=== PATIENT | male | born 1960 | race Caucasian/White ===

== ENCOUNTER 2019-01-27 06:53 | Day surgery (SDC) | payer OTHER ==
[2019-01-17 19:04] VITALS: BMI 32.8
[2019-01-27] MEDS ORDERED: ceFAZolin SODIUM 1 GM VIAL ONE ×2 (08:40→10:40)
[2019-01-27] MEDS ORDERED: SODIUM CHLORIDE 0.9% P/F 10 ML VIAL IJ ONE ×2 (08:40→10:40)
[2019-01-27] MEDS ORDERED: DEXMEDETOMIDINE HCL 200 MCG/2 ML IVPB ONE (10:05)
[2019-01-27] MEDS ORDERED: BUPIVACAINE HCL/PF 0.5% (5MG/ML) 10 ML VIAL ONE (10:07)
[2019-01-27] MEDS ORDERED: MIDAZOLAM HCL 2 MG/2 ML SINGLE DOSE VIAL ONE ×2 (10:11→10:41)
[2019-01-27] MEDS ORDERED: BUPIVACAINE HCL/EPINEPHRINE/PF 30 ML VIAL IJ ONE (10:17)
[2019-01-27] MEDS ORDERED: ePHEDrine SULFATE 50 MG/1 ML AMPULE ONE (10:54)
--- NOTE | 2019-01-27 11:30 | OP ---
Operative Note - Note: Operative Date: 01/27/19 Pre-Operative Diagnosis: Left knee LMT- bucket handle Operation: LKA, LMR Post-Operative Diagnosis: Same as Pre-op Surgeon: Bhavik Blackwood Anesthesia: General, Spinal Operative Report Dictated: Yes
--- NOTE | 2019-01-27 11:30 | DS ---
Physical Examination Vital Signs: Vital Signs Temperature 98.5 F 01/27/19 07:26 Pulse Rate 74 01/27/19 07:26 Respiratory Rate 18 01/27/19 07:26 Blood Pressure 132/88 01/27/19 07:26 O2 Sat by Pulse Oximetry (%) 98 01/27/19 07:26 Discharge Summary Reason For Visit: MEIAL MENISCAL TEAR RIGHT KNEE Condition: Good - Instructions Diet, Activity, Other Instructions: Post Operative Instructions: Knee Arthroscopy Dr Bhavik Blackwood 1. Pain following an arthroscopy is variable. Some patients will have more pain than others. You have been provided with a prescription for medication that contains a narcotic. You are not allowed to drive while on this medication. You should NOT take Tylenol (Acetaminophen) when taking the pain medication ( it will result in an overdose). Feel free to take medications such as Ibuprofen or Naprosyn in addition to the pain medicine if you do not have any problems with the NSAID class of medications. 2. You should are allowed to remove the bandages and shower in 24 hours unless directed otherwise. You are not allowed to bathe or go swimming until the sutures are removed. Put band-aids on the sutures after your shower and do not put any creams or lotions over the incisions. 3. You are allowed to put all your weight on the leg and bend your knee, unless directed otherwise. 4. Apply ice to the knee for 15 min every hour or so. You may continue this for as many days as you like. 5. Please call the office to schedule a visit to have your sutures removed. 6. If for any reason you believe you may have an infection or are concerned, please feel free to call me. I can be reached through our office number 24 hours a day. 7. Please call our office with any questions; we will review the surgical findings during your post operative visit. Disposition: HOME - Home Medications Comprehensive Discharge Medication List: Ambulatory Orders Amlodipine Besylate 10 mg PO DAILY 01/17/19 Aspirin [ASA -] 81 mg PO DAILY 01/17/19 Carvedilol [Coreg -] 25 mg PO DAILY 01/17/19 Dapagliflozin/Metformin HCl [Xigduo Xr 10 mg-1,000 mg Tab] 1 each PO DAILY 01/17 Dulaglutide [Trulicity] 1.5 mg SQ WEEKLY 01/17/19 Glimepiride 2 mg PO DAILY 01/17/19 Insulin Glargine,Hum.rec.anlog [Michelleaglantonia [place] U-100] 35 unit SQ DAILY Latanoprostene Bunod [Vyzulta] 1 drop OU DAILY 01/17/19 Lisinopril [Prinivil -] 40 mg PO DAILY 01/17/19 Oxycodone HCl 15 mg PO QID 01/17/19
[2019-01-27] MEDS ORDERED: oxyCODONE HCL 5 MG TABLET PO PRN (12:22)
[2019-01-27] MEDS ORDERED: ONDANSETRON 4 MG/2 ML VIAL IVPUSH PRN (12:22)
[2019-01-27] MEDS ORDERED: LACTATED RINGERS SOLUTION 1,000 ML IV SCH (12:30)
[2019-01-27 12:43] VITALS: TEMP 98
[2019-01-27] MEDS ORDERED: oxyCODONE HCL 5 MG TABLET ONE (13:22)
[2019-01-27 14:01] VITALS: BP 142/89; PULSE 59
--- NOTE | 2019-02-01 10:16 | PATH ---
Surgical Pathology Report Patient Name: ANAT JOHNSON [facility]. Rec. #: [id number] /Age/Gender: 1960 (Age: 58) / F Account: [id number] Location: [facility] Taken: 01/27/2019 Received: 01/27/2019 Reported: 02/01/2019 Physicians: Bhavik Blackwood M.D. Specimen(s) Received SHAVINGS RIGHT KNEE Clinical History Right medial meniscus tear knee Final Diagnosis RIGHT KNEE SHAVINGS: FRAGMENTS OF SYNOVIAL AND CARTILAGINOUS TISSUE WITH REACTIVE AND DEGENERATIVE CHANGE. Electronically Signed Selam Noland M.D. Gross Description Received in formalin labeled "shavings right knee," is a 2.2 x 1.5 x 0.3 cm aggregate of cordova-yellow soft tissue fragments. The formalin is filtered and the specimen is entirely submitted in one cassette. /01/30/201901/30/2019
== END 2019-01-27 14:12 | disposition home or self-care (01) ==
LOC: FASU 06:53 → EDSEX 07:30 → FASU 14:12
PROVIDERS: ATTEND Orthopaedic Surgery
PROC: 0SQC4ZZ Repair Right Knee Joint, Percutaneous Endoscopic Approach (ICD-10-PCS; principal; 2019-01-27 10:49)
DX: S83.251A Bucket-handle tear of lateral meniscus, current injury, right knee, initial encounter (principal); X58.XXXA Exposure to other specified factors, initial encounter; Y93.9 Activity, unspecified; Y92.9 Unspecified place or not applicable
CPT/HCPCS: 82962; 88304-TC; 94760